=== PATIENT | female | born 1970 | race Two or more races ===

== ENCOUNTER 2021-08-18 16:42 | Inpatient (IN) | payer OTHER ==
[~2021-08-18] VITALS: Ht 160 cm; Wt 71.9 kg
[2021-08-18] MEDS ORDERED: SODIUM CHLORIDE 0.9% 1,000 ML IV ONE ×2 (17:00)
[2021-08-18 17:52] LABS: Albumin 3.4 g/dL (3.4-5.0); BUN/Creatinine Ratio 29.3; Calcium 8.2 mg/dL (8.5-10.1); Potassium 3.8 mmol/L (3.5-5.1)
[2021-08-18] MEDS ORDERED: NITROGLYCERIN 0.4 MG SL TAB SL PRN (18:00)
[2021-08-18] MEDS ORDERED: D5W/SOD CHL 0.45% 1,000 ML IV ONE (18:00)
[2021-08-18] MEDS ORDERED: MORPHINE SULFATE INJECTION 2 MG/ML SYRG IV PRN (18:00)
[2021-08-18 18:01] LABS: Bilirubin, Total 0.2 mg/dL (0.2-1.0); Total Protein 7.2 g/dL (6.4-8.2)
[2021-08-18 18:06] LABS: Basophils # (auto) 0 10 ^3/uL (0-0.2); Basophils % (auto) 0.6 % (0.0-2.0); Eosinophils # (auto) 0.1 10 ^3/uL (0-0.8); Eosinophils % (auto) 2.2 % (0.0-7.0); Hematocrit 38.2 % (36.0-46.0); Hemoglobin 12.3 g/dL (12.2-16.2); Lymphocytes % (auto) 39.3 % (10.0-50.0); Mean Corpuscular Hemoglobin 29.4 pg (28.0-32.0); Mean Corpuscular Hgb Conc. 32.3 g/dL (32.0-36.0); Mean Corpuscular Volume 91.1 fL (80.0-100.0); Monocytes # (auto) 0.4 10 ^3/uL (0-1.3); Monocytes % (auto) 7.9 % (0.0-12.0); Neutrophils # (auto) 2.6 10 ^3/uL (1.6-8.6); Nucleated Red Blood Cells % 0.1 %; Red Blood Cells 4.19 10^6/uL (4.0-5.20); Red Cell Distribution Width 14.9 % (11.8-14.3); White Blood Cell 5.1 10^3/uL (4.4-10.8)
[2021-08-18 18:14] LABS: INR 1.01 (0.9-1.15); Partial Thromboplastin Time 25.2 sec (23.6-33.0)
[2021-08-18 20:00] VITALS: BP 116/71
[2021-08-18 22:00] VITALS: BP 116/71
[2021-08-18] MEDS: TOPIRAMATE 25 MG TAB PO SCH (22:10)
[2021-08-19 05:00] VITALS: BP 102/62
[2021-08-19 08:32] VITALS: BP 103/70
[2021-08-19] MEDS: TOPIRAMATE 25 MG TAB PO SCH (09:24)
[2021-08-19] MEDS ORDERED: levETIRAcetam 500 MG TAB PO SCH (10:00)
[2021-08-19] MEDS ORDERED: LORazepam 2MG/ML-1ML VIAL IV PRN (10:30)
[2021-08-19 12:30] LABS: Urine Bacteria NONE SEEN /hpf (None Seen); Urine Blood Negative /uL (Negative); Urine Specific Gravity 1.009 (1.001-1.035); Urine WBC 1 /hpf (0 - 5)
[2021-08-19 12:44] LABS: Alcohol, Urine < 3.0 mg/dL (0-10); Amphetamine Screen, Urine NEGATIVE (NEGATIVE); Barbiturate Scree,Urine NEGATIVE (NEGATIVE); Benzodiazephine Screen, Urine NEGATIVE (NEGATIVE); Cannabinoid Screen, Urine NEGATIVE (NEGATIVE); Cocaine Screen, Urine NEGATIVE (NEGATIVE); Opiate Scree,Urine NEGATIVE (NEGATIVE); Phencyclidine Screen, Urine NEGATIVE (NEGATIVE)
[2021-08-19 14:14] VITALS: BP 97/70
[2021-08-19 16:58] VITALS: BP 110/60
[2021-08-19] MEDS: levETIRAcetam 500 MG TAB PO SCH (22:06)
[2021-08-19] MEDS: TOPIRAMATE 100 MG TAB PO SCH (22:06)
[2021-08-19 22:45] VITALS: BP 106/67
[2021-08-20] VITALS (7 sets, daily range): BP systolic 95–113; BP diastolic 55–70
[2021-08-20] MEDS: levETIRAcetam 500 MG TAB PO SCH ×2 (10:26→21:17)
[2021-08-20] MEDS: TOPIRAMATE 100 MG TAB PO SCH ×2 (10:26→21:15)
[2021-08-20] MEDS ORDERED: traMADol HCL 50 MG TAB PO PRN (21:15)
[2021-08-21 05:04] VITALS: BP 97/68
[2021-08-21 09:00] VITALS: BP 102/56
[2021-08-21] MEDS: TOPIRAMATE 100 MG TAB PO SCH (09:01)
[2021-08-21] MEDS: levETIRAcetam 500 MG TAB PO SCH (09:02)
[2021-08-21] MEDS ORDERED: PANTOPRAZOLE 40 MG TAB PO SCH (10:00)
[2021-08-21 13:00] VITALS: BP 99/67
[2021-08-21] MEDS ORDERED: TOPI100T29 PO (13:03)
[2021-08-21] MEDS ORDERED: KEP500T PO (13:03)
== END 2021-08-21 13:39 | DRG 101 ==
LOC: ER 16:42 → EEVIPCON 16:42 → OVERFLOW 17:49 → CENTRAL 19:50
PROVIDERS: ADMIT Internal Medicine; ATTEND Internal Medicine
DX: G40.901 Epilepsy, unspecified, not intractable, with status epilepticus (principal); F17.200 Nicotine dependence, unspecified, uncomplicated; Z82.49 Family history of ischemic heart disease and other diseases of the circulatory system; G83.84 Todd's paralysis (postepileptic); J45.909 Unspecified asthma, uncomplicated; Z79.899 Other long term (current) drug therapy; Z90.49 Acquired absence of other specified parts of digestive tract; Z90.710 Acquired absence of both cervix and uterus; Z91.19 Patient's noncompliance with other medical treatment and regimen; Z20.822 Contact with and (suspected) exposure to COVID-19; S00.511A Abrasion of lip, initial encounter; X58.XXXA Exposure to other specified factors, initial encounter; Y93.89 Activity, other specified; Y92.89 Other specified places as the place of occurrence of the external cause; Y99.8 Other external cause status
CPT/HCPCS: 36415; 70450; 70551; 71045; 80053; 80307; 81001; 84484; 85025; 85610; 85730; 87426; 93005; 95819; 96365; 96368; 97163; G0378; J7060